=== PATIENT | male | born 1980 | race Caucasian/White ===

== ENCOUNTER → 2020-03-22 10:43 | Outpatient (BNVA) | payer BC, SELFPAY | PROVIDERS: Visit Provider Nurse Practitioner Family | DX: I10 Essential (primary) hypertension (principal); E78.5 Hyperlipidemia, unspecified | CPT/HCPCS: 80053; 80061; 85025 ==

== ENCOUNTER → 2020-09-12 09:30 | Outpatient (BNVA) | payer BC, SELFPAY | PROVIDERS: Visit Provider Nurse Practitioner Family | DX: E78.5 Hyperlipidemia, unspecified (principal); I10 Essential (primary) hypertension | CPT/HCPCS: 80053; 80061; 85025 ==